=== PATIENT | female | born 1955 | race Caucasian/White ===

== ENCOUNTER → 2017-05-24 | Outpatient (CLI) | payer BC ==
[2017-05-24 16:38] LABS: T4, Free (Free Thyroxine) 0.85 ng/dL (0.78-2.19)
[2017-05-25 12:09] LABS: DNA Double-Stranded NEGATIVE (NEGATIVE)
[2017-05-25 13:19] LABS: Hemoglobin A1C 4.9 % (4.0-6.0)
[2017-05-25 13:48] LABS: Vitamin B6 30 ug/L (5-50)
[2017-05-26 18:50] LABS: Arsenic Whole Blood 2 mcg/L (< 23); Mercury Whole Blood < 2 mcg/L (< 11)
== END ==
LOC: LABWHC1 15:46
PROVIDERS: ATTEND Psychiatry & Neurology Neurology
DX: G62.9 Polyneuropathy, unspecified (principal)
CPT/HCPCS: 36415; 82175; 82570; 82607; 82747; 83036; 83655; 83825; 84207; 84439; 84443; 86038; 86225; 86618